=== PATIENT | female | born 1995 | race Caucasian/White ===

== ENCOUNTER 2024-06-23 12:05 | Observation (INO) ==
[2024-06-23] MEDS: Ondansetron 4 mg VIAL 2 MG/ML 2 ml VIAL IV ONE (14:45)
[2024-06-23] MEDS: Lactated Ringers 1000 ml BAG 1,000 ML IV ONE (14:45)
[2024-06-23 14:59] LABS: ABS Basophils 0.1 10^3/uL (0.0-0.1); ABS Lymphocytes 1.2 10^3/uL (1.0-4.8); ABS Monocytes 1.2 10^3/uL (0.0-0.9); ABS Neutrophils 14.7 10^3/uL (1.5-7.6); Eosinophil % 0.1 %; Hematocrit 38.4 % (35-45); Hemoglobin 12.4 g/dL (11.5-14.3); Lymphocyte % 7.1 %; Mean Corpuscular Hemoglobin 26.6 pg (27-33); Mean Corpuscular Hgb Conc 32.4 g/dL (31-36); Mean Corpuscular Volume 82.2 fL (80-97); Mean Platelet Volume 8.4 fL (7.5-11.2); Platelet Count 261 10^3/uL (150-450); Red Blood Count 4.66 10^6/uL (3.63-4.92); White Blood Count 17.3 10^3/uL (3.8-11.8)
[2024-06-23 15:04] LABS: INR 1.13 (0.85-1.14)
[2024-06-23 15:32] LABS: ALT 20 U/L (7-52); AST 13 U/L (13-39); Albumin 4.6 g/dL (3.2-5.2); Albumin/Globulin Ratio 1.5 (1-3); Alkaline Phosphatase 65 U/L (35-149); Anion Gap 9 mmol/L (2-16); Blood Urea Nitrogen 8 mg/dL (6-24); C Reactive Protein 22.24 mg/L (<8.01); CO2 Carbon Dioxide 27 mmol/L (22-32); Calcium 9.6 mg/dL (8.6-10.3); Chloride 100 mmol/L (101-111); Creatinine, Serum 0.69 mg/dL (0.51-0.95); Globulin 3.1 g/dL (2-4); Glucose 112 mg/dL (70-100); Lipase 18 U/L (11.0-82.0); Potassium 3.9 mmol/L (3.5-5.0); Sodium 136 mmol/L (135-145); Total Bilirubin 0.5 mg/dL (0.2-1.0); Total Protein 7.7 g/dL (6.4-8.9); eGFR CKD-EPI 119.7 (>60)
[2024-06-23 15:35] LABS: HCG Pregnancy < 0.60 mIU/mL
[2024-06-23] MEDS: Iohexol 350 (CONTRAST) 500 ML MDV IV ONE (16:08)
[2024-06-23] MEDS: Piperacillin/Tazobac 3.375 BAG 3.375 GM/100 ML BAG IV ONE (16:44)
[2024-06-23 18:23] LABS: Urine Appearance Clear; Urine Bilirubin Negative (Negative); Urine Blood Negative (Negative); Urine Color Colorless; Urine Glucose Negative (Negative); Urine Ketones Negative (Negative); Urine Nitrite Negative (Negative); Urine Protein Negative (Negative); Urine Specific Gravity 1.018 (1.002-1.030); Urine Urobilinogen Negative (Negative); Urine pH 6.5 (5.0-8.0)
[2024-06-23] MEDS: Ondansetron 4 mg VIAL 2 MG/ML 2 ml VIAL IV PRN (22:27)
[2024-06-23] MEDS: NS 0.9% 1000 ml BAG 1,000 ML IV SCH (22:27)
[2024-06-23] MEDS: HYDROmorphone 1 MG/1 ML SYRINGE IV SLOW PU PRN (22:27)
[2024-06-24] MEDS: Piperacillin/Tazobac 3.375 BAG 3.375 GM/100 ML BAG IV SCH (01:37)
[2024-06-24] MEDS ORDERED: Bupivacaine 0.25% w/EPI 10 ML SDV ONE (07:13)
[2024-06-24] MEDS ORDERED: Rocuronium 50 mg VIAL 10 mg/ml 5 ml VIAL (50 mg) ONE (07:21)
[2024-06-24] MEDS ORDERED: Midazolam 2 mg/2 ml VIAL 1 mg/ml 2 ml VIAL (2 mg) ONE (07:21)
[2024-06-24] MEDS ORDERED: fentaNYL 250 mcg/5 ml 50 MCG/ML 5 ml VIAL (250 MCG) ONE (07:22)
[2024-06-24] MEDS ORDERED: Propofol 10 MG/ML 20 ML BTL ONE (07:23)
[2024-06-24] MEDS ORDERED: Lidocaine 2% PF 5 ML VIAL ONE (07:23)
[2024-06-24] MEDS ORDERED: Dexamethasone IV 4 MG/ML VIAL 1 ml VIAL ONE (08:02)
[2024-06-24] MEDS ORDERED: Ondansetron 4 mg VIAL 2 MG/ML 2 ml VIAL ONE (08:02)
[2024-06-24] MEDS ORDERED: Acetaminophen IV 1 GM/100ML 1,000 MG/100 ML BAG IV ONE (08:06)
[2024-06-24 09:16] VITALS: BP 115/73
== END 2024-06-24 09:58 | disposition home or self-care (01) ==
LOC: ED 12:05 → EDHOLD 12:05 → AA 06-24 06:24
PROVIDERS: ADMIT Surgery; ATTEND Surgery